=== PATIENT | male | born 1950 | race Caucasian/White ===

== ENCOUNTER 2016-08-28 06:57 | Emergency (ER) | payer MEDICARE, MEDICAID ==
[~2016-08-28 06:57] MED LIST: ALPR0.5T PO; ASPI-482 PO; ATOR20TA PO; BUDE10.2 IH; ENAL2.5T PO; FURO20TA3 PO; GLIM4TAB PO; HYDR-2666 PO; METF500T4 PO; OMEG1CAP2 PO; PROAIR HFA8.5 GM IH; RANI150T6 PO
[2016-08-28 07:17] LABS: POTASSIUM ISTAT 3.5 mmol/L (3.5-5.0)
--- NOTE | 2016-08-28 08:12 | PHYS DOC ---
Adult General Chief Complaint Chief Complaint: CPR/FULL ARREST HPI HPI Patient is a 66 year old male who presents with cardiac arrest. He has a history of diabetes, coronary disease, COPD, previous MT with a stable abdominal aortic aneurysm. According to family he woke up at 4:30 am this morning with his significant other to see her off to dialysis and then went to the garage to smoke a cigarette. His is 8-year-old adopted son found him at around 6:30 AM unresponsive and ran outside to get the neighbors for help. According to EMS they arrived at 6:30 AM and CPR was already in progress by bystanders. EMS stated they shocked twice for a possible fine V. fib, and gave 2 rounds of epi and intubated him with the gel LMA prior to arrival. Review of Systems Review of Systems Unable to obtain Allergies Allergies Allergies Coded Allergies Type Severity Reaction Last Updated Verified No Known Drug Allergies 07/31/13 No Physical Exam Physical Exam Constitutional: Well developed, well nourished, in acute distress HENT: Normocephalic, bilateral external ears normal, oropharynx moist, no oral exudates, nose normal, small amount of dried blood next to his nose and a 2 x 3 cm abrasion to the right forehead. [] Eyes: Conjunctiva normal, no discharge. Pupils 2 mm and fixed bilaterally Neck: No stridor,. [] Cardiovascular: CPR in progress Lungs & Thorax: Bilateral breath sounds clear to auscultation [] Abdomen: Soft, no masses, no pulsatile masses. [] Skin: Warm, dry, no erythema, no rash. [] Back: No signs of trauma Extremities: No edema. [] Neurologic: Unresponsive Current Patient Data Lab Values Laboratory Tests Test 08/28/16 07:11 08/28/16 07:13 POC Troponin I 0.39ng/ml (<0.08) POC Hemoglobin 15.0g/dL (14-18) POC Hematocrit 44% (37-52) POC Sodium 138mmol/L (135-145) POC Potassium 3.5mmol/L (3.5-5.0) POC Chloride 93mmol/L (98-110) L POC Total CO2 25mmol/L (23-32) Anion Gap 25mmol/L (6-14) H POC Blood Urea Nitrogen 20mg/dL (8-26) POC Creatinine 1.6mg/dL (0.5-1.4) H Glucose Level 340mg/dL (70-99) H POC Ionized Calcium (Pastor) 1.00mmol/L (1.13-1.32) L Laboratory Tests 08/28/16 07:13 EKG EKG [] Radiology/Procedures Radiology/Procedures [] Impressions: Cardiac arrest Course & Med Decision Making Course & Med Decision Making Pertinent Labs and Imaging studies reviewed. (See chart for details) Patient arrived with chest compressions going on by EMS and being bagged at 6: 58 AM. He was transferred over to the cot and bilateral breath sounds was confirmed with bagging and the patient did not have any pulses and chest compressions were resumed with him being hooked up to the monitor and end-tidal CO2 detector. He does have a small abrasion on the right forehead with some dried blood around his nose. He likely obtain this abrasion when he went unconscious and landed on the floor. ACLS protocol was followed. Respiratory therapy felt that it was harder to be bagged therefore I removed the gel LMA and intubated with a 7.5 ET tube at 23 at the teeth. I confirmed this after chest compressions resumed with the glidascope, color change with the CO2 detector and bilateral breath sounds with no sounds over the stomach. Stat labs did not show any hyperkalemia and his sugar was in the 300s. He did have an elevated troponin. Multiple rounds of epi, bicarbonate and 2 Amps of calcium chloride were given, the patient remained in the PEA/agonal rhythm. I did shock him once at 200 J in the event it could be a fine V. fib that was not being picked up on the monitor. At 7:27 AM I confirmed no cardiac activity with the ultrasound and pronounced him . I initially spoke with Dr. Hanson regarding the patient's and then we were able to get a hold of Dr. Leon who is agreeable to signing the certificate. We removed his tubes and IV lines that was placed. Please refer to the CODE BLUE sheet for exact times and doses of medications given. Dragon Disclaimer Dragon Disclaimer This electronic medical record was generated, in whole or in part, using a voice recognition dictation system. Departure Departure Impression: Primary Impression: Cardiac arrest Disposition: 20 Condition: Referrals: Yary LEON MD (PCP) JENNI CHAVEZ MD Aug 28, 2016 08:12
[2016-08-28] MEDS ORDERED: EPINEPHRINE ONE (13:05)
[2016-08-28] MEDS ORDERED: CALCIUM CHLORIDE 1,000 MG/10 ML DISP.SYRIN IV ONE (13:05)
[2016-08-28] MEDS ORDERED: SODIUM BICARB ADULT 8.4% 50 MEQ/50 ML DISP.SYRIN. ONE (13:05)
[2016-08-28] MEDS ORDERED: EPINEPHRINE 1 MG/10 ML DISP.SYRIN. ONE (13:05)
== END 2016-08-28 11:24 | disposition expired ==
LOC: ER 06:57
DX: I46.9 Cardiac arrest, cause unspecified (principal); S00.81XA Abrasion of other part of head, initial encounter; E11.9 Type 2 diabetes mellitus without complications; F17.210 Nicotine dependence, cigarettes, uncomplicated; I25.2 Old myocardial infarction; I71.4 Abdominal aortic aneurysm, without rupture; J44.9 Chronic obstructive pulmonary disease, unspecified; R74.8 Abnormal levels of other serum enzymes; W18.39XA Other fall on same level, initial encounter; Y93.89 Activity, other specified; Y92.89 Other specified places as the place of occurrence of the external cause; Y99.8 Other external cause status
CPT/HCPCS: 31500; 80047; 84484; 92950; 99285; J0171; J3490